=== PATIENT | female | born 1990 | race Caucasian/White ===

== ENCOUNTER 2017-02-24 11:37 | Emergency (ER) | payer MEDICAID ==
[2017-02-24 12:04] LABS: URINE BILIRUBIN NEGATIVE (NEGATIVE); URINE BLOOD LARGE (NEGATIVE); URINE COLOR PINK; URINE GLUCOSE (UA) NEGATIVE (NEGATIVE); URINE KETONE NEGATIVE (NEGATIVE); URINE PROTEIN TRACE mg/dL (NEGATIVE); URINE UROBILINOGEN 0.2 E.U./dL (0.2 - 1.0)
[2017-02-24] MEDS ORDERED: Sodium Chloride 0.9% 1,000 ML IV ONE (12:06)
--- NOTE | 2017-02-24 12:06 | ED Physician Chart ---
Chief Complaint/HPI - Patient Information Date Seen:: 02/24/17 Time Seen:: 12:01 Chief Complaint:: vag bleed History of Present Illness:: pt w onset heavy vag bleed w clots since this am. s/p by methotrexate po 11/20. pt says she was on ctrl for 2 months after the mtx po. there was no d+c done. [facility]. hx of ..now/today pt has felt tired/weak lately. also she is off her synthroid x months and missed her pmd appt yest was supposed to get her med refilled. no fever. no vag dc other than blood/clots. no back pain. had nausea and vomited 1x this am. Allergies:: Allergies Allergy/AdvReac Type Severity Reaction Status Date / Time No Known Allergies Allergy Verified 02/24/17 11:49 Vitals:: Vital Signs - 8 hr 02/24/17 11:50 Temp 97.9 F HR 59 RR 16 BP 107/59 O2 Sat % 99 Historian:: Patient Review of Systems - Review of Systems General/Constitutional: No fever, No chills, No weight loss, Weakness (?), No diaphoresis, No edema, No loss of appetite Skin: No skin lesions, No rash, No bruising Head: No headache, No light-headedness Eyes: No loss of vision, No pain, No diplopia ENT: No earache, No nasal drainage, No sore throat, No tinnitus Neck: No neck pain, No swelling, No thyromegaly, No stiffness, No mass noted Cardio Vascular: No chest pain, No palpitations, No PND, No orthopnea, No edema Pulmonary: No SOB, No cough, No sputum, No wheezing GI: Nausea, Vomiting, No diarrhea, Pain, No melena, No hematochezia, No constipation, No hematemesis G/U: No dysuria, No frequency, No hematuria [employer]: Abnormal vaginal bleeding (on time but heavier and w clots) Musculoskeletal: No bone or joint pain, No back pain, No muscle pain Endocrine: No polyuria, No polydipsia Psychiatric: No prior psych history, No depression, No anxiety, No suicidal ideation Hematopoietic: No bruising, No lymphadenopathy Allergic/Immuno: No urticaria, No angioedema Neurological: No syncope, No focal symptoms, No weakness, No paresthesia, No headache, No seizure, No dizziness, No confusion, No vertigo Past Medical History - Past Medical History Past Medical History: Thyroid disorder, Other () Social History: Non Smoker Medication: Reviewed Family Medical History - Family Member Mother Hx Family Cancer: No Hx Family Coronary Artery Disease: No Hx Family Congestive Heart Failure: No Hx Family Hypertension: No Hx Family Stroke: No Hx Family Diabetes: No Hx Family Seizures: No Hx Family Dementia: No Hx Family AIDS: No Hx Family HIV: No Hx Family COPD: No Hx Family Hepatitis: No Hx Family Psychiatric Problems: No Hx Family Tuberculosis: No Physical Exam - Physical Examination General/Constitutional: Awake, Well-developed, well-nourished, Alert, No distress, GCS 15, Non-toxic appearing, Ambulatory Other Gen/Cons comments:: ok color. ok strength overall. no distresss. wn/wh. Head: Atraumatic Eyes: Lids, conjuctiva normal, PERRL, EOMI Skin: Nl inspection, No rash, No skin lesions, No ecchymosis, Well hydrated, No lymphadenopathy ENMT: External ears, nose nl, Nasal exam nl, Lips, teeth, gums nl Neck: Nontender, Full ROM w/o pain, No JVD, No nuchal rigidity, No bruit, No mass, No stridor Respiratory: Nl effort/Exclusion, Clear to Auscultation, No Wheeze/Rhonchi/Rales Cardio Vascular: RRR, No murmur, gallop, rubs, NL S1 S2 GI: No tenderness/rebounding/guarding, No organomegaly, No hernia, Normal BS's, Nondistended, No mass/bruits, No McBurney tenderness Other GI comments:: mild tndr over low pelvis... : No CVA tenderness Extremities: No tenderness or effusion, Full ROM, normal strength in all extremities, No edema, Normal digits & nails Neuro/Psych: Alert/oriented, DTR's symmetric, Normal sensory exam, Normal motor strength, Judgement/insight normal, Mood normal, Normal gait, No focal deficits Misc: normal gait, Normal back, No paraspinal tenderness Labs/Radiology/EKG Results - Lab Results Results: Laboratory Tests 02/24/17 11:50 Urine Test POSITIVE pt is RH + per lab Laboratory Tests 02/24/17 02/24/17 02/24/17 11:50 11:52 12:09 WBC 5.0 RBC 4.02 Hgb 12.3 Hct 36.1 MCV 89.8 MCH 30.7 MCHC Differential 34.2 RDW 12.3 Plt Count 190 MPV 8.5 Neutrophils % 58.5 Lymphocytes % 29.8 Monocytes % 9.7 Eosinophils % 1.9 Basophils % 0.1 Sodium Potassium Chloride Carbon Dioxide Anion Gap BUN Creatinine Est GFR ( Amer) Est GFR (Non-Af Amer) BUN/Creatinine Ratio Glucose Calcium Total Bilirubin AST ALT Alkaline Phosphatase Total Protein Albumin Globulin Albumin/Globulin Ratio TSH Beta HCG, Quant Urine Source CLEAN C Urine Color PINK Urine Clarity SL. CLOUDY Urine pH 6.0 Ur Specific [place] 1.010 Urine Protein TRACE Urine Glucose (UA) NEGATIVE Urine Ketones NEGATIVE Urine Blood LARGE H Urine Nitrate NEGATIVE Urine Bilirubin NEGATIVE Urine Urobilinogen 0.2 Ur Leukocyte Esterase NEGATIVE Urine RBC 25-35 Urine WBC 0-2 Ur Epithelial Cells RARE Urine Bacteria NONE SEEN Urine Test POSITIVE Blood Type 02/24/17 02/24/17 02/24/17 12:09 12:09 12:09 WBC RBC Hgb Hct MCV MCH MCHC Differential RDW Plt Count MPV Neutrophils % Lymphocytes % Monocytes % Eosinophils % Basophils % Sodium 132 L Potassium 3.5 Chloride 108 H Carbon Dioxide 24.9 Anion Gap 2.6 L BUN 9 Creatinine 0.7 Est GFR ( Amer) > 60.0 Est GFR (Non-Af Amer) > 60.0 BUN/Creatinine Ratio 12.9 Glucose 90 Calcium 9.1 Total Bilirubin 0.3 AST 15 ALT 17 Alkaline Phosphatase 40 Total Protein 6.7 Albumin 3.8 Globulin 2.9 Albumin/Globulin Ratio 1.3 TSH 5.05 Beta HCG, Quant [id number] Urine Source Urine Color Urine Clarity Urine pH Ur Specific [place] Urine Protein Urine Glucose (UA) Urine Ketones Urine Blood Urine Nitrate Urine Bilirubin Urine Urobilinogen Ur Leukocyte Esterase Urine RBC Urine WBC Ur Epithelial Cells Urine Bacteria Urine Test Blood Type 02/24/17 12:09 WBC RBC Hgb Hct MCV MCH MCHC Differential RDW Plt Count MPV Neutrophils % Lymphocytes % Monocytes % Eosinophils % Basophils % Sodium Potassium Chloride Carbon Dioxide Anion Gap BUN Creatinine Est GFR ( Amer) Est GFR (Non-Af Amer) BUN/Creatinine Ratio Glucose Calcium Total Bilirubin AST ALT Alkaline Phosphatase Total Protein Albumin Globulin Albumin/Globulin Ratio TSH Beta HCG, Quant Urine Source Urine Color Urine Clarity Urine pH Ur Specific [place] Urine Protein Urine Glucose (UA) Urine Ketones Urine Blood Urine Nitrate Urine Bilirubin Urine Urobilinogen Ur Leukocyte Esterase Urine RBC Urine WBC Ur Epithelial Cells Urine Bacteria Urine Test Blood Type AB POSITIVE - Radiology Results Results: us pelvis- pos viable 5 wk iup w yolk sac and heart beat. no [place] source of vag bleed seen. no torsion or ectopic seen. ED Septic Shock - . Is Septic Shock (SBP<90, OR Lactate>4 mmol\L) present?: No - <6hrs of presentation: Vital Signs: Vital Signs - 8 hr 02/24/17 11:50 Temp 97.9 F HR 59 RR 16 BP 107/59 O2 Sat % 99 Reassessment (Disposition) - Reassessment Reassessment:: pt is ambulating around ed without trouble. results rev w pt. explained about threatened ab and need for pelvic rest and close fu w developmental training counselor in 1-2 d. return to a ED (prefer 1 w developmental training counselor servc) if heavy bleeding and weakness. no nsaids or etoh. strickt pelvic rest..no heavy labor. off work. tylenol only for pain. pt advised to have her pmd check her t4 levels when she gets to office in 1-2 d (ordered here but not back yet) Reassessment Condition:: Improved - Diagnosis Diagnosis:: 1 5 week viable iup 2 vag bleed- threatened spontaneous - Aftercare/Follow up Instructions Aftercare/Follow-Up Instructions:: Counseled pt regarding lab results/diagnosis & need follow up Notes:: rh + so no rhogan needed - Patient Disposition Discharge/Transfer:: Home Condition at Disposition:: Improved ED Discharge Plan - Patient Disposition Admit/Discharge/Transfer: PT DISCHARGED HOME Condition at Disposition: Stable Instructions: Threatened Miscarriage, [id number], Vaginal Bleeding During , [id number]
[2017-02-24 12:14] LABS: URINE BACTERIA NONE SEEN /hpf (NONE SEEN); URINE EPITHELIAL CELLS RARE /lpf (FEW); URINE RBC 25-35 /hpf (0-5); URINE WBC 0-2 /hpf (0-5)
[2017-02-24 12:17] LABS: % BASOPHILS 0.1 % (0.0-2.0); % EOSINOPHILS 1.9 % (0.0-5.0); % LYMPHOCYTES 29.8 % (20.0-50.0); % MONOCYTES 9.7 % (2.0-10.0); % NEUTROPHILS 58.5 % (40.0-80.0); HEMATOCRIT 36.1 % (35.0-45.0); HEMOGLOBIN 12.3 gm/dL (11.7-15.5); MEAN CELL VOLUME 89.8 fl (81-100); MEAN CORPUSCULAR HEMOGLOBIN 30.7 pg (27.0-31.0); MEAN CORPUSCULAR HGB CONC 34.2 pg (28.0-36.0); MEAN PLATELET VOLUME 8.5 fl; NEUTROPHILE ABSOLUTE 2.9 Th/cmm (1.8-8.0); PLATELET COUNT 190 Th/cmm (150-400); RED BLOOD COUNT 4.02 Mil/cmm (3.80-5.10); RED CELL DISTRIBUTION WIDTH 12.3 % (11.5-20.0)
[2017-02-24 12:35] LABS: ALB/GLOB RATIO 1.3 (1.0-1.8); ALKALINE PHOSPHATASE 40 U/L (34-104); ANION GAP 2.6 (7.0-16.0); BILIRUBIN,TOTAL 0.3 mg/dL (0.3-1.0); BUN - UREA NITROGEN 9 mg/dL (7-25); BUN/CREATININE RATIO 12.9; CALCIUM SERUM 9.1 mg/dL (8.6-10.3); CARBON DIOXIDE 24.9 mEq/L (21.0-31.0); CHLORIDE 108 mEq/L (98-107); CREATININE - SERUM 0.7 mg/dL (0.6-1.2); GLUCOSE 90 mg/dL (70-105); POTASSIUM SERUM 3.5 mEq/L (3.5-5.1); SGOT 15 U/L (13-39); SGPT/ALT 17 U/L (7-52); SODIUM SERUM 132 mEq/L (136-145)
--- NOTE | 2017-02-24 13:26 | Diagnostic Imaging Report ---
Ultrasound OB HISTORY: Status post methotrexate on November 2006. Positive urine test. Moderate bleeding and mild cramping. COMPARISON: None Technique: Longitudinal and transverse sonographic sector images of the pelvis were obtained transabdominally and transvaginally. FINDINGS: The uterus appears retroverted. The uterus measures 9.2 x 5.2 x 6.4 cm. An intrauterine gestational sac is noted measuring 1.4 cm. A yolk sac is identified. A pole is noted with crown-rump length measuring 0.84 cm corresponding to gestational age of 6 weeks and 6 days. heart rate was 155 bpm. Small amount of free fluid is seen within the pelvis. The right ovary measures 3.4 x 3.3 cm. The Left ovary measures 3.3 x 2.0 cm. IMPRESSION: Intrauterine gestational sac with yolk sac and pole noted corresponding to gestational age of 6 weeks and 6 days +/-10 days based on crown-rump length. Positive heart tones are noted. Recommend clinical correlation and short-term follow-up including serial follow-up beta hCGs and follow-up ultrasound in one week. No evidence of free fluid in the pelvis.
== END 2017-02-24 14:04 | disposition home or self-care (01) ==
LOC: ER 11:37
DX: O46.91 Antepartum hemorrhage, unspecified, first trimester (principal); O20.0 Threatened abortion; E07.9 Disorder of thyroid, unspecified; Z3A.01 Less than 8 weeks gestation of pregnancy
CPT/HCPCS: 36415-UA; 76801-TC; 80053-TC; 81001-TC; 81025-TC; 84439-90; 84443-TC; 84702-TC; 85025-TC; 86900-TC; 86901-TC; J7030

== ENCOUNTER 2017-03-29 09:41 | Emergency (ER) | payer MEDICAID ==
--- NOTE | 2017-03-29 10:13 | ED Physician Chart ---
Chief Complaint/HPI - Patient Information Date Seen:: 03/29/17 Time Seen:: 10:00 Chief Complaint:: Right Great Toe Redness History of Present Illness:: Onset x 3 days after a Pedicure of Right Great Toe and Right 4'th Toe erythema and mild swelling; no known trauma; pt denies fever, chills, H/As, neck pain, C/ P, SOB, Abd. pain, A/N/V/D/C, weakness, paresthesias, dizziness, gait changes, or vertigo; pt's last tetanus shot: < 5 years; UTD Allergies:: Allergies Allergy/AdvReac Type Severity Reaction Status Date / Time No Known Allergies Allergy Verified 02/24/17 11:49 Vitals:: Vital Signs - 8 hr 03/29/17 10:03 Temp 98.3 F HR 70 RR 17 BP 119/66 O2 Sat % 99 Historian:: Patient Review:: Nurse's Note Reviewed Review of Systems - Review of Systems General/Constitutional: Fever, Chills, No weight loss, No weakness, No diaphoresis, No edema, No loss of appetite Skin: Skin lesions, No rash, No bruising Head: No headache, No light-headedness Eyes: No loss of vision, No pain, No diplopia ENT: No earache, No nasal drainage, No sore throat, No tinnitus Neck: No neck pain, No swelling, No thyromegaly, No stiffness, No mass noted Cardio Vascular: No chest pain, No palpitations, No PND, No orthopnea, No edema Pulmonary: No SOB, Cough, No sputum, No wheezing GI: Nausea, Vomiting, Diarrhea, No pain, No melena, No hematochezia, Constipation, No hematemesis G/U: No dysuria, No frequency, No hematuria Musculoskeletal: No bone or joint pain, No back pain, No muscle pain Endocrine: No polyuria, No polydipsia Psychiatric: No prior psych history, No depression, No anxiety, No suicidal ideation Hematopoietic: No bruising, No lymphadenopathy Allergic/Immuno: No urticaria, No angioedema Neurological: No syncope, No focal symptoms, No weakness, No paresthesia, No headache, No seizure, No dizziness, No confusion, No vertigo Past Medical History - Past Medical History Obtainable: Yes Past Medical History: No significant medical hx Family History: HTN Social History: Non Smoker, No Alcohol, No Drug Use, Single Surgical History: None Psychiatricy History: None Medication: Reviewed Family Medical History - Family Member Mother Hx Family Cancer: No Hx Family Coronary Artery Disease: No Hx Family Congestive Heart Failure: No Hx Family Hypertension: No Hx Family Stroke: No Hx Family Diabetes: No Hx Family Seizures: No Hx Family Dementia: No Hx Family AIDS: No Hx Family HIV: No Hx Family COPD: No Hx Family Hepatitis: No Hx Family Psychiatric Problems: No Hx Family Tuberculosis: No Physical Exam - Physical Examination General/Constitutional: Awake, Well-developed, well-nourished, Alert, No distress, GCS 15, Non-toxic appearing, Ambulatory Head: Atraumatic Eyes: Lids, conjuctiva normal, PERRL, EOMI Skin: Nl inspection, No rash, No skin lesions, No ecchymosis, Well hydrated, No lymphadenopathy Other Skin comments:: RGT and Right 4'th Toe localized cellulitis; no FBs; Gait: WNL; good motor, tendon, and sensory functions; good NV functions ENMT: External ears, nose nl, Nasal exam nl, Lips, teeth, gums nl Neck: Nontender, Full ROM w/o pain, No JVD, No nuchal rigidity, No bruit, No mass, No stridor Respiratory: Nl effort/Exclusion, Clear to Auscultation, No Wheeze/Rhonchi/Rales Cardio Vascular: RRR, No murmur, gallop, rubs, NL S1 S2 GI: No tenderness/rebounding/guarding, No organomegaly, No hernia, Normal BS's, Nondistended, No mass/bruits, No McBurney tenderness : No CVA tenderness Extremities: No tenderness or effusion, Full ROM, normal strength in all extremities, No edema, Normal digits & nails Neuro/Psych: Alert/oriented, DTR's symmetric, Normal sensory exam, Normal motor strength, Judgement/insight normal, Mood normal, Normal gait, No focal deficits Misc: normal gait, Normal back, No paraspinal tenderness ED Septic Shock - . Is Septic Shock (SBP<90, OR Lactate>4 mmol\L) present?: No - <6hrs of presentation: Vital Signs: Vital Signs - 8 hr 03/29/17 10:03 Temp 98.3 F HR 70 RR 17 BP 119/66 O2 Sat % 99 Reassessment (Disposition) - Reassessment Reassessment Condition:: Improved - Diagnosis Diagnosis:: Right Great Toe Cellulitis; Right Fourth Toe Cellulitis; Toe Redness and Swelling; Cellulitis; Toe Pain - Aftercare/Follow up Instructions Aftercare/Follow-Up Instructions:: Counseled pt regarding lab results/diagnosis & need follow up, Refer to Discharge Instructions, Counseled pt & family regarding lab results/diagnosis & need follow up Medication Prescribed:: Rx: Keflex 500mg po qid x 10 days; Neosporin Ointment bid x 14 days; Warm Compresses - Patient Disposition Discharge/Transfer:: Home Condition at Disposition:: Stable, Improved (RTER prn if existing s/s reoccur and/or get worse and/or any other new s/s occur; ACIs given for all Dx; Refer to Data Management Engineer/Consultant Technology/Vascular Surgeon/Orthopedist [facility]; F/U with PMD in one day or prn; RTER prn if concerned)
== END 2017-03-29 10:25 | disposition home or self-care (01) ==
LOC: ER 09:41
DX: L03.031 Cellulitis of right toe (principal)
CPT/HCPCS: Z7502